=== PATIENT | female | born 1995 | race Caucasian/White ===

== ENCOUNTER 2019-07-30 13:09 | Outpatient (CLI) | payer BC, SELFPAY ==
--- NOTE | ~2019-07-30 | XR_ITS ---
XR foot RT min 3V 07/30/2019 13:41 Indication: Skiing injury. Medial ankle pain. Procedure: 4 views right foot Comparison: No prior studies for comparison. Findings: There is an ossific density just proximal to the medial aspect of the navicular which may r epresent an avulsion fracture or accessory ossicle. Mild soft tissue swelling. No other fracture iden tified. Lisfranc joint intact. Impression: 1: Ossific density adjacent to the navicular, avulsion fracture versus accessory ossicle. Recommend c onservative therapy with follow-up x-rays in 10-14 days to assess for interval change. Reviewed, dictated and finalized at location A. Impression: 1: Ossific density adjacent to the navicular, avulsion fracture versus accessor y ossicle. Recommend conservative therapy with follow-up x-rays in 10-14 days t o assess for interval change.
== END 2019-07-30 13:10 | disposition home or self-care (01) ==
PROVIDERS: PCP Family Medicine; Visit Provider Physician Assistant
DX: S99.929A Unspecified injury of unspecified foot, initial encounter (principal); X58.XXXA Exposure to other specified factors, initial encounter
CPT/HCPCS: 73630

== ENCOUNTER 2019-08-15 11:15 | Outpatient (CLI) | payer BC, SELFPAY ==
--- NOTE | ~2019-08-15 | XR_ITS ---
EXAMINATION: XR foot RT 2V DATE: 08/15/2019 11:29 INDICATION: Right foot pain. TECHNIQUE: 2 views of right foot were obtained. COMPARISON: Right foot radiograph 07/30/2019 FINDINGS: Bone alignment is normal. No fracture. There is a type II navicular. There is mild osteoart hritis of first metatarsophalangeal joint IMPRESSION: 1. Mild osteoarthritis of first metatarsophalangeal joint. Reviewed, dictated and finalized at location A.
== END 2019-08-15 11:16 | disposition home or self-care (01) ==
LOC: ANHIMG 11:19
PROVIDERS: PCP Family Medicine; Visit Provider Physician Assistant
DX: M79.671 Pain in right foot (principal); M19.071 Primary osteoarthritis, right ankle and foot
CPT/HCPCS: 73620